=== PATIENT | female | born 1990 | race Caucasian/White ===

== ENCOUNTER 2019-08-05 20:36 | Emergency (ER) | payer MEDICAID ==
[~2019-08-05] VITALS: Ht 162.6 cm; Wt 77.3 kg
[2019-08-05 20:46] VITALS: BP 120/83
--- NOTE | 2019-08-05 22:05 | NUR ---
WHILE ANABEL MONGE AND I RESOLVED AN OMNICELL DISCREPENCY, THE PATIENT LEFT. GREENHOUSE TRANSPLANTERANABEL DAVID AND DR RODRIGUEZ NOTIFIED
== END 2019-08-05 22:11 | disposition left against medical advice (07) ==
LOC: ER 20:36
DX: R21 Rash and other nonspecific skin eruption (principal); Z53.21 Procedure and treatment not carried out due to patient leaving prior to being seen by health care provider

== ENCOUNTER 2019-08-06 17:07 | Emergency (ER) | payer MEDICAID ==
[~2019-08-06] VITALS: Ht 162.6 cm; Wt 77.3 kg
[2019-08-06 17:51] VITALS: BP 133/77
== END 2019-08-06 18:50 | disposition left against medical advice (07) ==
LOC: ER 17:07
DX: L30.9 Dermatitis, unspecified (principal); F11.90 Opioid use, unspecified, uncomplicated; Z88.1 Allergy status to other antibiotic agents
CPT/HCPCS: 99281